=== PATIENT | male | born 1960 | race Caucasian/White ===

== ENCOUNTER 2020-05-10 11:07 | Emergency (ER) | payer BC, OTHER ==
[~2020-05-10] VITALS: Ht 177.8 cm; Wt 81.8 kg
[2020-05-10 11:17] VITALS: BP 133/85
[2020-05-10] MEDS ORDERED: HYDR-4383 PO (12:55)
[2020-05-10] MEDS ORDERED: acetaminophen 325mg tablet PO ONE (13:50)
== END 2020-05-10 14:09 | disposition home or self-care (01) ==
LOC: ER 11:08
DX: S82.61XA Displaced fracture of lateral malleolus of right fibula, initial encounter for closed fracture (principal); M25.571 Pain in right ankle and joints of right foot; M25.471 Effusion, right ankle; F17.200 Nicotine dependence, unspecified, uncomplicated; F12.90 Cannabis use, unspecified, uncomplicated; Z90.89 Acquired absence of other organs; Z79.899 Other long term (current) drug therapy; X58.XXXA Exposure to other specified factors, initial encounter; Y93.89 Activity, other specified; Y92.89 Other specified places as the place of occurrence of the external cause; Y99.8 Other external cause status
CPT/HCPCS: 29515; 73610; 73630; 99284

== ENCOUNTER 2020-05-14 12:48 | Emergency (ER) | payer OTHER ==
[~2020-05-14] VITALS: Ht 177.8 cm; Wt 90.0 kg
[~2020-05-14 12:48] MED LIST: HYDR-4383 PO
[2020-05-14 15:26] VITALS: BP 146/117
== END 2020-05-14 14:58 | disposition home or self-care (01) ==
LOC: ER 12:50
DX: S82.64XA Nondisplaced fracture of lateral malleolus of right fibula, initial encounter for closed fracture (principal); I10 Essential (primary) hypertension; G89.29 Other chronic pain; F12.90 Cannabis use, unspecified, uncomplicated; Z90.89 Acquired absence of other organs; Z79.899 Other long term (current) drug therapy
CPT/HCPCS: 29105; 93971; 99284